=== PATIENT | female | born 1960 | race Two or more races ===

== ENCOUNTER 2022-04-21 07:52 | Outpatient (CLI) | payer OTHER | END 2022-04-21 07:58 | disposition home or self-care (01) | LOC: RX STUDY 07:52 | PROVIDERS: ATTEND Colon & Rectal Surgery | DX: Z93.3 Colostomy status (principal) ==

== ENCOUNTER 2022-04-25 08:46 | Outpatient (CLI) | payer OTHER | END 2022-04-25 08:54 | disposition home or self-care (01) | LOC: RX STUDY 08:46 | PROVIDERS: ATTEND Colon & Rectal Surgery | DX: Z93.3 Colostomy status (principal) ==

== ENCOUNTER 2022-06-09 08:45 | Inpatient (IN) | payer OTHER ==
[~2022-06-09] VITALS: Ht 162.6 cm; Wt 63.5 kg
== END 2022-06-17 12:37 | disposition home or self-care (01) | DRG 330 ==
LOC: O/R 06-14 06:00 → SURG 06-14 08:45 → SURH 06-14 20:36 → O/R 06-14 20:50 → SURH 06-14 20:53
PROVIDERS: ADMIT Colon & Rectal Surgery; ATTEND Colon & Rectal Surgery
PROC: 0DBP4ZZ Excision of Rectum, Percutaneous Endoscopic Approach (ICD-10-PCS; 2022-06-14)
PROC: 07BB4ZZ Excision of Mesenteric Lymphatic, Percutaneous Endoscopic Approach (ICD-10-PCS; 2022-06-14)
PROC: 07BC4ZZ Excision of Pelvis Lymphatic, Percutaneous Endoscopic Approach (ICD-10-PCS; 2022-06-14)
PROC: 0DBN4ZZ Excision of Sigmoid Colon, Percutaneous Endoscopic Approach (ICD-10-PCS; 2022-06-14)
PROC: 0DJD8ZZ Inspection of Lower Intestinal Tract, Via Natural or Artificial Opening Endoscopic (ICD-10-PCS; 2022-06-14)
PROC: 0WQF4ZZ Repair Abdominal Wall, Percutaneous Endoscopic Approach (ICD-10-PCS; 2022-06-14)
PROC: 0DTN4ZZ Resection of Sigmoid Colon, Percutaneous Endoscopic Approach (ICD-10-PCS; principal; 2022-06-14 11:15)
DX: K57.32 Diverticulitis of large intestine without perforation or abscess without bleeding (principal); C19 Malignant neoplasm of rectosigmoid junction; K92.1 Melena; K66.0 Peritoneal adhesions (postprocedural) (postinfection); K43.2 Incisional hernia without obstruction or gangrene; Z85.038 Personal history of other malignant neoplasm of large intestine; Z43.3 Encounter for attention to colostomy